=== PATIENT | male | born 2005 | race Caucasian/White ===

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

== ENCOUNTER 2023-08-09 22:04 | Emergency (ER) | payer BC, MEDICAID ==
[~2023-08-09] VITALS: Ht 167.6 cm; Wt 71.2 kg
[2023-08-09 22:09] VITALS: BP 145/85; PULSE 78; RESP 14; TEMP 98; O2SAT 98
[2023-08-10] MEDS ORDERED: IBUPROFEN 600MG TABLET PO STA (02:09)
[2023-08-10] MEDS ORDERED: CYCL5TAB PO (04:01)
[2023-08-10] MEDS ORDERED: NAPR-681 MT (04:01)
== END 2023-08-10 04:50 | disposition home or self-care (01) ==
LOC: ER 22:04
DX: S16.1XXA Strain of muscle, fascia and tendon at neck level, initial encounter (principal); V49.9XXA Car occupant (driver) (passenger) injured in unspecified traffic accident, initial encounter; Y93.89 Activity, other specified; Y92.89 Other specified places as the place of occurrence of the external cause; Y99.8 Other external cause status
CPT/HCPCS: 99284